=== PATIENT | male | born 2000 | race Caucasian/White ===

== ENCOUNTER 2018-09-23 18:06 | Emergency (ER) | payer OTHER, MEDICAID, SELFPAY ==
[2018-09-23 18:09] VITALS: BP 142/96; PULSE 101; RESP 18; TEMP 37; O2SAT 100; BMI 15.4
--- NOTE | 2018-09-23 18:16 | ED_ITS ---
HPI - Chest Pain General Chief Complaint: Chest Pain Stated Complaint: Chest pain, stated has heart condition Time Seen by Provider: 09/23/18 18:16 Source: patient and family Mode of arrival: ambulatory Limitations: no limitations History of Present Illness HPI narrative: Patient is a 18 year old male here for evaluation of chest pain. Patient states that he has daily chest pain. He states that today he started having pain that radiated up to the top of his left shoulder. States his symptoms have improved. Nothing made the pain better or worse. No shortness of breath. Did not pass out. 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 He stated that he was told as a child that he needed a valve replacement although nothing has transpired from this. He is new to the area. Living with relatives. Is scheduled to see a new primary care doctor next month. Came into the emergency department for evaluation Related Data Home Medications Medication Instructions Recorded Confirmed hydroxyzine HCl 50 mg PO QID PRN 09/23/18 09/23/18 lorazepam 0.5 mg PO QD-BID PRN 09/23/18 09/23/18 metoprolol succinate 25 mg PO DAILY 09/23/18 09/23/18 quetiapine [Seroquel] 100 mg PO BEDTIME 09/23/18 09/23/18 Allergies Allergy/AdvReac Type Severity Reaction Status Date / Time No Known Drug Allergies Allergy Verified 09/23/18 19:14 Review of Systems Constitutional Denies fever(s) and Denies headache(s) ENT Ears, Nose, Mouth, and Throat: Denies headache(s) Cardiovascular Reports chest pain, Denies edema, Denies leg edema, Reports palpitations and Denies dyspnea Respiratory Denies cough, Denies dyspnea and Denies wheezing Gastrointestinal Gastrointestinal: Denies abdominal pain, Denies nausea and Denies vomiting Musculoskeletal Denies myalgias and Denies arthralgias Integumentary/Breasts Denies rash Neurologic Denies headache(s) Endocrine Reports palpitations Hematologic/Lymphatic Comments: Not on anticoagulation Allergic/Immunologic Denies wheezing PFSH Medical History ADHD (Acute) Anxiety (Acute) Bipolar affect, depressed (Acute) PTSD (post-traumatic stress disorder) (Acute) PVC (premature ventricular contraction) (Acute) Pleurisy (Acute) Social History Smoking Status: Current some day smoker Exam Initial Vital Signs Initial Vital Signs: Vital Signs Temperature 98.6 F 09/23/18 18:09 Pulse Rate 101 H 09/23/18 18:09 Respiratory Rate 18 09/23/18 18:09 Blood Pressure 142/96 H 09/23/18 18:09 Pulse Oximetry 100 09/23/18 18:09 Const General: cooperative, healthy appearing, comfortable, well developed, well groomed and No acute distress Orientation: alert, awake and oriented x3 HENMT Head: normal to inspection and normocephalic Resp Effort & Inspection: normal respiratory effort Auscultation: clear to auscultation bilaterally Cardio Rate: regular rate Rhythm: regular rhythm Pulses: radial pulses present GI Palpation: soft, No firm and No tender Skin Lesions: no lesions Rashes: no rashes Neuro General: alert, awake and oriented x3 Extrem General: normal to inspection and capillary refill normal Psych Appearance: grossly normal and well kempt Affect: anxious affect Course Orders Ordered: ED Orders 09/23/18 19:27 CT chest wo con Stat Vital Signs - 8 hr 09/23/18 20:59 Temperature 99.2 F Pulse Rate 100 H Respiratory Rate 16 Blood Pressure 130/76 Pulse Oximetry 99 MDM - Chest Pain Imaging Data Chest x-ray: Radiologist's impression: PROCEDURE: XR CHEST 1V INDICATIONS: chest pain TECHNIQUE: One view of the chest was acquired. COMPARISON: None. FINDINGS: Surgical changes and devices: None. Lungs and pleura: No pleural effusions. There is minimal appearance of a pleural line within the left upper lobe. Lungs are hyperinflated. Mediastinum: Mediastinal contours appear normal. Heart size is normal. Bones and chest wall: No suspicious bony lesions. Overlying soft tissues appear unremarkable. IMPRESSION: Minimal appearance of pleural line within the left upper lobe. Very minimal pneumothorax cannot be excluded. The above was discussed with Dr. Enzo Hurt on 09/23/18 at 7:20pm. Dictated by: Regina Carpenter M.D. on 09/23/2018 at 19:17 Approved by: Regina Carpenter M.D. on 09/23/2018 at 19:22 CT scan - chest: Radiologist's impression: EDURE: CT CHEST WO CON INDICATIONS: possible Left sided Pneumothorax TECHNIQUE: Noncontrast 5 mm thick sections acquired from the pulmonary apices to the posterior costophrenic angles. 7 mm thick coronal and sagittal MIP reformats were then acquired. For radiation dose reduction, the following was used: automated exposure control, adjustment of mA and/or kV according to patient size. COMPARISON: [facility], CR, XR CHEST 1V, 09/23/2018, 18:43. FINDINGS: Image quality: Excellent. Lungs and pleura: No acute air space opacities. No pleural effusions or pneumothorax. Central and peripheral airways are patent and normal in caliber. Lungs are hyperinflated. Mediastinum: Heart size is normal. No pericardial effusion. No mediastinal adenopathy by size criteria. Thoracic aorta and central pulmonary arteries are normal in size. Esophagus is normal in caliber. No hiatal hernia. Bones and chest wall: No suspicious bony lesions. No vertebral body compression fractures. No axillary or supraclavicular adenopathy by size criteria. Thyroid gland is unremarkable. Abdomen: Visualized upper abdominal solid organs and bowel loops appear normal in the absence of contrast. IMPRESSION: 1. No visualized pneumothorax. 2. Lungs are hyperexpanded. Otherwise, unremarkable. Dictated by: Regina Carpenter M.D. on 09/23/2018 at 20:08 Approved by: Regina Carpenter M.D. on 09/23/2018 at 20:12 ECG Data Attestation: I personally reviewed and interpreted this ECG as follows: Prior ECG tracings: not available for review Interpretation: Sinus rhythm Normal QRS No ectopy No ST T wave changes MDM Narrative Medical decision making narrative: Initial chest x-ray shows what could be a left-sided pneumothorax however CT scan does not support this. Patient on ischemic EKG. Had a long discussion with the patient the family regarding his prior cardiac history. Does appear that when he was an infant he had an echocardiogram which he states was when he/his family was told that he could potentially need a valve replacement in the future. He then stated that the decision was made to wait to see if he had any other ?symptoms ?is he grew older. He has been evaluated by Cardiology in the past. Apparently in the past he has been diagnosed with PVCs. He states that he was scheduled for a treadmill test however he states that the application consultant did not want to do it because these PVCs. He has not had any follow-up since then. Patient seems fairly confused about his medical history. He was told that his PVCs were something that he needed to be worried about. He stated that he thought that he was on blood thinners however when asked what medication he was on his and metoprolol. Had a long discussion with him regarding PVCs and the fact that he was more than likely on the metoprolol for symptom control these. He is rather tall and skinny. Considered [employer] fans given his chest x-ray in his body habitus however when I asked the patient about this he has never been told that he about this type of diagnosis. Patient is low risk for ACS. No signs of pneumonia. I do feel that there is a strong anxiety component to his symptoms. I was able to obtain an echo result that he had at the end of last year which was unremarkable and showed no valve abnormalities are no signs of heart failure. Will hold on further workup for now. Informed the patient and his family that he should keep his follow-up appointment that he already has scheduled. He were given return precautions. They expressed understanding and agreement with plan. Discharge Plan Departure Patient Disposition: Home Clinical Impression: Atypical chest pain Discharge Date/Time: 09/23/18 21:01 Interventions: ED Discharge Assessment Last Done: 09/23/18 20:59 Instructions: DI for Atypical Chest Pain Activity Restrictions/Additional Instructions: Recommend that tomorrow you contact your new primary care doctor to see if you can move up your appointment. I also recommend you continue all of your medications as directed. You can return to the emergency department for any new or worsening symptoms Prescriptions: No Action hydroxyzine HCl 50 mg Tablet 50 mg PO QID PRN (Reason: Anxiety) RF: 0 quetiapine [Seroquel] 100 mg Tablet 100 mg PO BEDTIME RF: 0 lorazepam 0.5 mg Tablet 0.5 mg PO QD-BID PRN (Reason: Anxiety) RF: 0 metoprolol succinate 25 mg Tablet Extended Release 24 Hr 25 mg PO DAILY RF: 0
[2018-09-23 18:35] VITALS: BP 125/77; PULSE 93; RESP 14; O2SAT 100
[2018-09-23 19:05] VITALS: BP 142/76; PULSE 99; RESP 14; O2SAT 100
--- NOTE | 2018-09-23 19:27 | DI.CT.S_ITS ---
PROCEDURE: CT CHEST WO CON INDICATIONS: possible Left sided Pneumothorax TECHNIQUE: Noncontrast 5 mm thick sections acquired from the pulmonary apices to the posterior costophrenic angles. 7 mm thick coronal and sagittal MIP reformats were then acquired. For radiation dose reduction, the following was used: automated exposure control, adjustment of mA and/or kV according to patient size. COMPARISON: [facility], CR, XR CHEST 1V, 09/23/2018, 18:43. FINDINGS: Image quality: Excellent. Lungs and pleura: No acute air space opacities. No pleural effusions or pneumothorax. Central and peripheral airways are patent and normal in caliber. Lungs are hyperinflated. Mediastinum: Heart size is normal. No pericardial effusion. No mediastinal adenopathy by size criteria. Thoracic aorta and central pulmonary arteries are normal in size. Esophagus is normal in caliber. No hiatal hernia. Bones and chest wall: No suspicious bony lesions. No vertebral body compression fractures. No axillary or supraclavicular adenopathy by size criteria. Thyroid gland is unremarkable. Abdomen: Visualized upper abdominal solid organs and bowel loops appear normal in the absence of contrast. IMPRESSION: 1. No visualized pneumothorax. 2. Lungs are hyperexpanded. Otherwise, unremarkable. Dictated by: Regina Carpenter M.D. on 09/23/2018 at 20:08 Approved by: Regina Carpenter M.D. on 09/23/2018 at 20:12
[2018-09-23 20:59] VITALS: BP 130/76; PULSE 100; RESP 16; TEMP 37.3; O2SAT 99
== END 2018-09-23 21:01 | disposition home or self-care (01) ==
PROVIDERS: Emergency Provider Emergency Medicine
DX: R07.89 Other chest pain (principal)
CPT/HCPCS: 36591; 71045; 71250; 93005; 99283; 99284